=== PATIENT | female | born 1950 | race Caucasian/White ===

== ENCOUNTER → 2016-05-24 | Outpatient (CLI) | payer MEDICARE, OTHER | LOC: LAB.O 14:43 | PROVIDERS: ATTEND Family Medicine | DX: M25.50 Pain in unspecified joint (principal); R53.82 Chronic fatigue, unspecified ==

== ENCOUNTER → 2016-05-26 | Outpatient (CLI) | payer MEDICARE, OTHER | END | disposition home or self-care (01) | LOC: GMAL 18:03 | PROVIDERS: ATTEND Family Medicine | DX: R53.82 Chronic fatigue, unspecified (principal); D50.9 Iron deficiency anemia, unspecified ==

== ENCOUNTER → 2016-08-03 | Outpatient (CLI) | payer MEDICARE, OTHER | LOC: GMAL 14:30 | PROVIDERS: ATTEND Family Medicine | DX: D50.8 Other iron deficiency anemias (principal) ==

== ENCOUNTER → 2016-10-28 | Outpatient (CLI) | payer MEDICARE, OTHER ==
--- NOTE | 2016-10-28 12:23 | MRI ---
EXAM DESCRIPTION: Lumbar Spine w/o Contrast CLINICAL HISTORY: 66 years, Female, BACK PAIN COMPARISON: Plain radiographs October 18 FINDINGS: Sagittal and axial sequences. There is bone marrow edema and L2 and L3 consistent with subacute compression injury. L2 compression predominantly involves the the midportion. Midportion height 1.7 cm versus about 2.1 cm at L1. The L3 compression injury also predominantly involves the midportion which is compressed to about 1.6 cm. The bone marrow edema and L3 is more extensive extension both anteriorly and posteriorly. Posterior cortex upper L3 retropulsed about 2.5 mm superiorly. Other vertebral bodies have normal marrow signal. There is a Schmorl's node or partial compression inferiorly anteriorly L4. Conus terminates at L1. L1-2 within normal limits. L2-3 disc shows minimal bulge asymmetric to the left. As noted above minimal retropulsion of the upper posterior cortex L3 minimally flattens central thecal sac without significant stenosis At L3-4 disc and facets within normal limits. The L4-5 disc space is narrowed with diffuse bulging disc osteophyte slightly asymmetric to the left. Mild left foraminal narrowing. L5-S1 small central and left lateral protrusion narrows the left exit foramen. Probable slight impingement on the exiting left L5 root as well. A benign-appearing sacral root sleeve cyst noted in about the level S4. IMPRESSION: 1. Subacute compression injuries of L3 and to lesser degree L2. These fractures would be amenable to vertebral plasty, if indicated 2. Minimal retropulsion of the upper L3 cortex slightly flattens the central thecal sac without significant stenosis 3. Bulging disc osteophyte L4-5 with left foraminal narrowing.. 4. Central left-sided protrusion L5-S1. Probable impingement on the exiting left L5 root Electronically signed by: Phil Jackman MD 10/28/2016 12:22 PM CDT
== END | disposition home or self-care (01) ==
LOC: MRI 08:55
PROVIDERS: ATTEND Family Medicine
DX: M25.78 Osteophyte, vertebrae (principal); M54.5 Low back pain

== ENCOUNTER → 2017-01-24 | Outpatient (CLI) | payer MEDICARE, OTHER | END | disposition home or self-care (01) | LOC: GMAL 14:38 | PROVIDERS: ATTEND Family Medicine | DX: D51.3 Other dietary vitamin B12 deficiency anemia (principal); D50.8 Other iron deficiency anemias; E55.9 Vitamin D deficiency, unspecified ==

== ENCOUNTER → 2017-02-09 | Outpatient (CLI) | payer MEDICARE, OTHER | END | disposition home or self-care (01) | LOC: MAMMO 15:49 | PROVIDERS: ATTEND Family Medicine | DX: Z12.31 Encounter for screening mammogram for malignant neoplasm of breast (principal) | CPT/HCPCS: 77063; G0202 ==